=== PATIENT | male | born 1930 | race Caucasian/White ===

== ENCOUNTER 2016-07-09 15:14 | Emergency (ER) | payer MEDICARE, BC ==
--- NOTE | 2016-07-09 15:25 | EDM.PDOC ---
ED HPI GENERAL MEDICAL PROBLEM - General Chief Complaint: Gastrointestinal Problem Stated Complaint: BLEEDING FROM RECTUM Time Seen by Provider: 07/09/16 15:23 Source of Information: Reports: Patient, Old records, RN, RN notes reviewed History Limitations: Reports: No Limitations - History of Present Illness INITIAL COMMENTS - FREE TEXT/NARRATIVE: Arrives to ER by POV with c/o rectal bleeding that he can't get it to stop bleeding. Patient is concerned because he is on coumadin for aortic valve replacement. Onset: today, unknown/unsure Duration: Intermittent Location: Reports: other (rectal/anal) Severity: moderate Improves with: Reports: None Worsens with: Reports: None Context: Denies: Activity, Exercise, Sick contact, Trauma Associated Symptoms: Reports: no other symptoms - Related Data Allergies Allergy/AdvReac Type Severity Reaction Status Date / Time TAPE Allergy Other Uncoded 07/18/14 08:25 Home Meds: Home Meds Aspirin [Ecotrin] 81 mg PO DAILY 07/17/14 [History] Furosemide 40 mg PO BID 07/17/14 [History] Ibuprofen [Advil] 600 mg PO BID PRN 07/17/14 [History] Metoprolol Succinate 25 mg PO DAILY 07/17/14 [History] Multivitamin [Multivitamins] 1 each PO DAILY 07/17/14 [History] Omeprazole [Omeprazole] 20 mg PO BID 07/17/14 [History] Potassium Chloride 20 meq PO BID 07/17/14 [History] Warfarin [Coumadin] 7.5 mg PO .5XWEEKLY 07/17/14 [History] metFORMIN [Glucophage] 500 mg PO BID 07/17/14 [History] Ketorolac [Acular 0.5% Ophth Soln] 1 drop EYERT ASDIRECTED 08/21/14 [History] Moxifloxacin [Vigamox 0.5% Ophth Soln] 1 drop EYERT ASDIRECTED 08/21/14 [History ] prednisoLONE Acetate [Pred Forte 1% Ophth Susp] 1 drop EYERT ASDIRECTED [History] Past Medical History Cardiovascular History: Reports: Other (see below) (valve disease) Gastrointestinal History: Reports: Other (see below) (hemorrhoids) - Past Surgical History Cardiovascular Surgical History: Reports: Other (see below) (aortic valve replacement.) Social & Family History - Family History Family Medical History: Noncontributory - Tobacco Use Smoking Status *Q: Never Smoker Used Tobacco, but Quit: No - Alcohol Use Days Per Week of Alcohol Use: 0 Number of Drinks Per Day: 0 Total Drinks Per Week: 0 - Recreational Drug Use Recreational Drug Use: No Drug Use in Last 12 Months: No - Living Situation & Occupation Occupation: retired ED ROS GENERAL - Review of Systems Review Of Systems: ROS reveals no pertinent complaints other than HPI. ED EXAM, GI/ABD - Physical Exam Exam: See Below Exam Limited By: No Limitations General Appearance: Alert, WD/WN, No Apparent Distress Respiratory/Chest: No Respiratory Distress, Lungs Clear, Normal Breath Sounds, No Accessory Muscle Use, Chest Non-Tender Cardiovascular: Regular Rate, Rhythm (with 2/6 JANAE with mechanical click.) GI/Abdominal: Normal Bowel Sounds, Soft, Non-Tender, No Organomegaly, No Distention, No Abnormal Bruit, No Mass Rectal (Males) Exam: Other (No active bleeding. Internal and external nonthrombosed hemorrhoids, minimal tenderness.) Back Exam: Normal Inspection, Full Range of Motion, NT Extremities: Normal Inspection, Normal Range of Motion, Non-Tender, Normal Capillary Refill, No Pedal Edema Neurological: Alert, Oriented, CN II-XII Intact, Normal Cognition, Normal Gait, Normal Reflexes, No Motor/Sensory Deficits Psychiatric: Normal Affect, Normal Mood Skin Exam: Warm, Dry, Intact, Normal Color, No Rash Course - Vital Signs Last Recorded V/S: Last Vital Signs Temp 36.8 C 07/09/16 15:35 Pulse 63 07/09/16 15:35 Resp 16 07/09/16 15:35 BP 122/84 07/09/16 15:35 Pulse Ox 97 07/09/16 15:35 - Orders/Labs/Meds Labs: Laboratory Tests 07/09/16 07/09/16 Range/Units 16:15 16:15 WBC 8.0 (5.0-10.0) 10^3/uL RBC 4.34 L (4.6-6.2) 10^6/uL Hgb 14.0 (14.0-18.0) g/dL Hct 40.4 (40.0-54.0) % MCV 93.1 (80-100) fL MCH 32.3 (27.0-34.0) pg MCHC 34.7 (33.0-35.0) g/dL Plt Count 194 (150-450) 10^3/uL Neut % (Auto) 70.2 (42.2-75.2) % Lymph % (Auto) 15.9 L (20.5-50.1) % [place] % (Auto) 10.4 H (2-8) % Eos % (Auto) 3.0 (1.0-3.0) % Baso % (Auto) 0.5 (0.0-1.0) % PT 25.0 H (9.0-12.0) SEC INR 2.5 H (0.9-1.2) Meds: Medications Discontinued Medications Generic Name Dose Route Start Last Admin Trade Name Darrell PRN Reason Stop Dose Admin Phenylephrine HCl 1 each 07/09/16 16:59 Alicia-Med RECTAL 07/09/16 17:00 ONETIME ONE Departure - Departure Time of Disposition: 17:04 Disposition: Home, Self-Care 01 Condition: fair Clinical Impression: Hemorrhoids, internal, with bleeding, On anticoagulant therapy - Discharge Information Instructions: Hemorrhoids, [id number] Forms: ED Department Discharge Additional Instructions: Use an [id number]-sza-[id number] Phenylephrine containing hemorrhoidal suppository, follow directions on package. Continue current Coumadin (warfarin dose). Follow up in clinic with your doctor either tomorrow or next week for recheck. Return to ER if bleeding returns and will not stop.
[2016-07-09 15:36] VITALS: BP 122/84
[2016-07-09] MEDS ORDERED: Phenylephrine Supp RECTAL ONE (16:59)
== END 2016-07-09 17:52 | disposition home or self-care (01) ==
LOC: DL.ED 15:14
DX: K64.8 Other hemorrhoids (principal); K64.4 Residual hemorrhoidal skin tags; Z91.09 Other allergy status, other than to drugs and biological substances; Z79.82 Long term (current) use of aspirin; Z79.84 Long term (current) use of oral hypoglycemic drugs; Z79.01 Long term (current) use of anticoagulants; Z79.899 Other long term (current) drug therapy
CPT/HCPCS: 36415; 85025; 85610; 99282; 99283; A9270-GY